=== PATIENT | male | born 1950 | race Caucasian/White ===

== ENCOUNTER 2021-06-14 04:21 | Day surgery (SDC) | payer OTHER, BC ==
[2021-06-10 09:38] VITALS: BMI 36.6
[2021-06-14] MEDS ORDERED: ONDANSETRON 4 MG/2 ML VIAL ONE ×2 (08:09→10:12)
[2021-06-14] MEDS ORDERED: MIDAZOLAM HCL 2 MG/2 ML SINGLE DOSE VIAL ONE (08:57)
[2021-06-14 13:00] VITALS: BP 114/64; PULSE 65; TEMP 98.2
== END 2021-06-14 11:10 | disposition home or self-care (01) ==
LOC: JASU-SURG 04:21
PROVIDERS: ATTEND Urology
PROC: 0TF3XZZ Fragmentation in Right Kidney Pelvis, External Approach (ICD-10-PCS; principal; 2021-06-14 09:00)
DX: N20.0 Calculus of kidney (principal)
CPT/HCPCS: 82962

== ENCOUNTER 2024-02-08 04:49 | Day surgery (SDC) | payer OTHER, BC ==
[2024-02-07 11:06] VITALS: BMI 34.2
[2024-02-08 12:47] VITALS: TEMP 97.8
[2024-02-08 13:17] VITALS: RESP 14
[2024-02-08 13:18] VITALS: BP 119/73; PULSE 60
== END 2024-02-08 13:20 | disposition home or self-care (01) ==
LOC: JASU-ENDO 04:49
PROVIDERS: ATTEND Internal Medicine Gastroenterology
PROC: 0DBN8ZX Excision of Sigmoid Colon, Via Natural or Artificial Opening Endoscopic, Diagnostic (ICD-10-PCS; principal; 2024-02-08 11:15)
DX: Z12.11 Encounter for screening for malignant neoplasm of colon (principal); D12.5 Benign neoplasm of sigmoid colon; K57.30 Diverticulosis of large intestine without perforation or abscess without bleeding; Z86.0100 Personal history of colon polyps, unspecified; Z80.0 Family history of malignant neoplasm of digestive organs
CPT/HCPCS: 82962; 88305-TC; 88342-TC